=== PATIENT | male | born 1980 | race Caucasian/White ===

== ENCOUNTER 2018-06-29 09:55 | Emergency (ER) | payer OTHER ==
[~2018-06-29] VITALS: Ht 177.8 cm; Wt 80.7 kg
[2018-06-29 10:17] VITALS: BP 131/98; Ht 177.8 cm; Wt 80.7 kg
== END 2018-06-29 10:51 | disposition home or self-care (01) ==
LOC: ED 09:55
DX: M54.5 Low back pain (principal); I10 Essential (primary) hypertension; E11.9 Type 2 diabetes mellitus without complications; E78.00 Pure hypercholesterolemia, unspecified